=== PATIENT | female | born 1955 | race Caucasian/White ===

== ENCOUNTER 2022-12-13 07:06 | Emergency (ER) | payer BC, OTHER, SELFPAY ==
[~2022-12-13] VITALS: Ht 167.6 cm; Wt 65.3 kg
[2022-12-13 07:32] LABS: BASOPHILS % (AUTO) 1.2 % (0.0-5.0); HEMATOCRIT 38.4 % (36-48); LYMPHOCYTES % (AUTO) 36.4 % (21.0-51.0); MEAN CORPUSCULAR HEMOGLOBIN 30.3 pg (27.0-33.0); MEAN CORPUSCULAR HGB CONC 33.3 g/dL (32.0-36.0); MEAN CORPUSCULAR VOLUME 90.8 fL (79-99); MONOCYTES % (AUTO) 8.2 % (3.0-13.0); PLATELET COUNT (AUTO) 270 K/uL (130-400); RED BLOOD CELL COUNT(AUTO) 4.23 MIL/uL (4.00-5.50); RED CELL DISTRIBUTION WIDTH 12.2 % (11.0-15.5)
[2022-12-13 07:34] LABS: APPEARANCE,URINE CLEAR (CLEAR); BILIRUBIN,URINE NEGATIVE (NEGATIVE); COLOR,URINE YELLOW (YELLOW); GLUCOSE, URINE (UA) NEGATIVE (NEGATIVE); KETONES,URINE NEGATIVE (NEGATIVE); LEUKOCYTE ESTERASE ,URINE NEGATIVE Leu/uL (NEGATIVE); NITRATE,URINE NEGATIVE (NEGATIVE); OCCULT BLOOD,URINE NEGATIVE (NEGATIVE); PH,URINE 5.5 (5.0-8.0); PROTEIN,URINE NEGATIVE (NEGATIVE); UROBILINOGEN,URINE 0.2 mg/dL (0.2-1.0)
[2022-12-13 07:40] LABS: CREATININE 0.8 mg/dL (0.5-1.5); POTASSIUM 4.1 mmol/L (3.5-5.1)
[2022-12-13 07:47] LABS: ALBUMIN 3.6 g/dL (3.5-5.0); TOTAL PROTEIN, SERUM 7.3 g/dL (6.0-8.3)
[2022-12-13] MEDS ORDERED: MORPHINE 2 MG SYG IM ONE (08:30)
[2022-12-13] MEDS ORDERED: KETOROLAC 60 MG VIAL (30MG/ML) IM ONE (08:30)
[2022-12-13] MEDS ORDERED: ORPHENADRINE CITRATE 30 MG/ML ML IM ONE (08:30)
[2022-12-13] MEDS ORDERED: LIDOCAINE 5% TOPICAL PATCH TP ONE (08:30)
[2022-12-13] MEDS ORDERED: CYCL-309 PO (11:31)
[2022-12-13] MEDS ORDERED: IBUP-2070 PO (11:31)
[2022-12-13 11:51] VITALS: BP 110/56
== END 2022-12-13 11:50 | disposition home or self-care (01) ==
LOC: EDH 07:06
DX: M62.838 Other muscle spasm (principal); R10.9 Unspecified abdominal pain
CPT/HCPCS: 99284; 74176; 80053; 85025; 81003; 36415; 96372 ×3; J1885; J2360